=== PATIENT | female | born 1965 | race American Indian/Alaskan Native ===

== ENCOUNTER 2022-04-03 07:47 | Outpatient (CLI) | payer OTHER ==
--- NOTE | 2022-04-03 08:36 | XRay Report ---
RIGHT ANKLE 2 VIEWS INDICATION: RIGHT ANKLE PAIN. COMPARISON: None. IMPRESSION: There is been previous internal fixation of the distal fibula with metal plate and screw s. A single screw also transverses the distal metaphysis of the fibula and tibia. There is mild heter otopic calcifications in the syndesmosis between the distal tibia and fibula. No evidence for acute f racture, bone lesion or bony destruction. No significant degenerative joint disease is appreciated. Small plantar spur is noted. Mild soft tissue swelling is suspected. Signer Name: Andrea Corley Jr, MD Signed: 04/03/2022 8:32 AM Workstation Name: [id number]
== END 2022-04-03 07:48 | disposition home or self-care (01) ==
LOC: XRAY 07:47
PROVIDERS: ATTEND Internal Medicine
DX: M77.31 Calcaneal spur, right foot (principal); M79.89 Other specified soft tissue disorders